=== PATIENT | male | born 1940 | race Two or more races ===

== ENCOUNTER 2016-12-29 08:56 | Emergency (ER) ==
[2016-12-29 09:16] VITALS: BP 151/91; TEMP 97.9; BMI 25.7
[2016-12-29] MEDS ORDERED: ZESTRIL PO STA (09:25)
[2016-12-29 09:36] LABS: BASOPHILS # (AUTO) 0.1 K/uL (0-0.2); BASOPHILS % (AUTO) 0.7 % (0.0-3.0); EOSINOPHILS # (AUTO) 0.3 K/ul (0.0-0.7); EOSINOPHILS % (AUTO) 4.6 % (0.0-7.0); HEMATOCRIT 45.1 % (42.0-52.0); HEMOGLOBIN 16.1 g/dl (14.0-18.0); IMMATURE GRANULOCYTE % (AUTO) 0.6 % (0.0-5.0); LYMPHOCYTES # (AUTO) 1.2 K/uL (0.60-3.4); LYMPHOCYTES % (AUTO) 16.3 (10.0-50.0); MEAN CORPUSCULAR HEMOGLOBIN 32.5 pg (27.0-31.0); MEAN CORPUSCULAR HGB CONC 35.7 (31.8-35.4); MEAN CORPUSCULAR VOLUME 91.1 fl (80.0-94.0); MONOCYTES # (AUTO) 0.6 K/uL (0.4-2.0); MONOCYTES % (AUTO) 8.6 (0-10); NEUTROPHILS % (AUTO) 69.2; PLATELET COUNT 184 10^3/uL (140-440); RED BLOOD COUNT 4.95 10^6/ul (4.70-6.10); WHITE BLOOD COUNT 7.25 K/ul (4.2-10.2)
[2016-12-29 09:57] LABS: SODIUM 139 mmol/L (136-145)
[2016-12-29 09:58] LABS: ALANINE AMINOTRANSFERASE 19 U/L (12-78); ANION GAP 12.1; ASPARTATE AMINO TRANSFERASE 16 U/L (15-37); BLOOD UREA NITROGEN 16 mg/dL (7-18); BUN/CREATININE RATIO 14.54; CALCIUM 8.9 mg/dL (8.2-10.2); CARBON DIOXIDE 24 mmol/L (23-31); CHLORIDE 107 mmol/L (98-107); CREATINE KINASE 38 U/L; GLUCOSE 111 mg/dL (82-115); POTASSIUM 4.1 mmol/L (3.5-5.1); TOTAL PROTEIN 6.3 g/dL (5.8-8.1)
[2016-12-29 09:59] LABS: ALBUMIN 3.8 g/dL (3.4-5.0); ALBUMIN/GLOBULIN RATIO 1.52; ALKALINE PHOSPHATASE 68 U/L (56-119)
--- NOTE | 2016-12-29 11:02 | ED.PDOC ---
General ED Provider: Dr. GAIL WALSH Chief Complaint: Hypertension Stated Complaint: hypertension Time Seen by Physician: 09:00 Mode of Arrival: Walk-In Information Source: Patient Exam Limitations: No limitations Primary Care Provider: SHEY FABIAN Nursing and Triage Documentation Reviewed and Agree: Yes Cardiovascular Complaint Exam - Hypertension Complaint/Exam Symptoms Are: Resolved Timing: Intermittent Reported B/P Prior to Arrival: 200/100 Aggravating: Reports: None Alleviating: Reports: None Associated Signs and Symptoms: Denies: Chest pain, Vision changes, Anxiety, Recent stress, Headache, Numbness, Tingling, Weakness, Dizziness, Short of air, Swelling Related History: Reports: Similar episode Related Surgical History: Reports: None Cardiac Risk Factors: Reports: Hypertension Recent Change in Medications: No A/V Nicking: No Papilledema Present: No JVD Present: No Carotid Bruit Present: No Femoral Pulses Bounding: No Differential Diagnoses: Hypertension Quality Indicator For Non-Traumatic Chest Pain/Syncope: EKG Performed Review of Systems - Review Of Systems Constitutional: Reports: No symptoms Eyes: Reports: No symptoms Ears, Nose, Mouth, Throat: Reports: No symptoms Respiratory: Reports: No symptoms Cardiac: Reports: No symptoms GI: Reports: No symptoms : Reports: No symptoms Musculoskeletal: Reports: No symptoms Skin: Reports: No symptoms Neurological: Reports: No symptoms Endocrine: Reports: No symptoms Hematologic/Lymphatic: Reports: No symptoms All Other Systems: Reviewed and Negative Past Medical History - Past Medical History Previously Healthy: Yes Endocrine: Reports: None Cardiovascular: Reports: Hypertension Respiratory: Reports: None Hematological: Reports: None Gastrointestinal: Reports: None Genitourinary: Reports: None Neuro/Psych: Reports: None Musculoskeletal: Reports: None Cancer: Reports: None - Surgical History General Surgical History: Reports: None - Family History Family History: Reports: None - Social History Smoking Status: Never smoker Hx Substance Use: No Alcohol Screening: Occasionally - Immunizations Tetanus Shot up to Date: No Physical Exam - Physical Exam Appearance: Well-appearing, No pain distress, Well-nourished Eyes: MARK, EOMI, Conjunctiva clear ENT: Ears normal, Nose normal, Oropharynx normal Respiratory: Airway patent, Breath sounds clear, Breath sounds equal, Respirations nonlabored Cardiovascular: RRR, Pulses normal, No rub, No murmur GI/: Soft, Nontender, No masses, Bowel sounds normal, No Organomegaly Musculoskeletal: Normal strength, ROM intact, No edema, No calf tenderness Skin: Warm, Dry, Normal color Neurological: Sensation intact, Motor intact, Reflexes intact, Cranial nerves intact, Alert, Oriented Psychiatric: Affect appropriate, Mood appropriate Critical Care Note - Critical Care Note Total Time (mins): 0 Course - Course Hematology/Chemistry: 12/29/16 09:34 12/29/16 09:34 Orders, Labs, Meds: Lab Review 12/29/16 12/29/16 09:34 09:34 WBC 7.25 RBC 4.95 Hgb 16.1 Hct 45.1 MCV 91.1 MCH 32.5 H MCHC 35.7 H RDW Coeff of Eugenie 12.4 Plt Count 184 Immature Gran % (Auto) 0.6 Neut % (Auto) 69.2 Lymph % (Auto) 16.3 Loving % (Auto) 8.6 Eos % (Auto) 4.6 Baso % (Auto) 0.7 Immature Gran # (Auto) 0.0 Neut # 5.0 Lymph # 1.2 Loving # 0.6 Eos # 0.3 Baso # 0.1 Sodium 139 Potassium 4.1 Chloride 107 Carbon Dioxide 24 Anion Gap 12.1 BUN 16 Creatinine 1.10 Estimated GFR (MDRD) 65.00 BUN/Creatinine Ratio 14.54 Glucose 111 Calcium 8.9 Total Bilirubin 1.20 AST 16 ALT 19 Alkaline Phosphatase 68 Total Creatine Kinase 38 Troponin I < 0.0100 Total Protein 6.3 Albumin 3.8 Globulin 2.5 Albumin/Globulin Ratio 1.52 TSH 1.613 Free T4 1.96 H Orders Category Date Time Status EKG-(ED ONLY) Stat CARDIO 12/29/16 09:25 Ordered CBC W/ AUTO DIFF Stat LAB 12/29/16 09:34 Completed COMPREHENSIVE METABOLIC PANEL Stat LAB 12/29/16 09:34 Completed CREATINE KINASE Stat LAB 12/29/16 09:34 Completed FREE T4 (FREE THYROXINE) Stat LAB 12/29/16 09:34 Completed THYROID STIMULATING HORMONE Stat LAB 12/29/16 09:34 Completed TROPONIN I Stat LAB 12/29/16 09:34 Completed Lisinopril [Zestril] MEDS 12/29/16 09:25 Discontinued 10 mg PO ONCE STA Medications Discontinued Medications Generic Name Dose Route Start Last Admin Trade Name Freq PRN Reason Stop Dose Admin Lisinopril 10 mg 12/29/16 09:25 12/29/16 09:43 Zestril PO 12/29/16 09:26 10 mg ONCE STA Administration Vital Signs: Temp Pulse Resp BP Pulse Ox 12/29/16 08:58 97.9 F 91 H 20 151/91 H 94 L [place] Risk Score [place] Risk Score: Risk Score Odds of by 30D 0 0.1 (0.1-0.2) 1 0.3 (0.2-0.3) 2 0.4 (0.3-0.5) 3 0.7 (0.6-0.9) 4 1.2 (1.0-1.5) 5 2.2 (1.9-2.6) 6 3.0 (2.5-3.6) 7 4.8 (3.8-6.1) Departure - Departure Time of Disposition: 11:02 Disposition: HOME SELF-CARE Discharge Problem: Hypertension Qualifiers: Hypertension type: unspecified Qualified Code(s): I10 - Essential (primary) hypertension Instructions: Hypertension (ED) Condition: Good Pt referred to PMD for follow-up: Yes Additional Instructions: Please call your Family Physician as soon as possible to schedule a follow-up appointment. Allergies/Adverse Reactions: Allergies No Known Allergies Allergy (Unverified 12/29/16 09:07) Home Medications: Ambulatory Orders Losartan Potassium [Cozaar] 37.5 mg PO DAILY 12/29/16
== END 2016-12-29 11:15 | disposition home or self-care (01) ==
LOC: ED 08:56
DX: I10 Essential (primary) hypertension (principal)
CPT/HCPCS: 36415; 80053; 82550; 84439; 84443; 84484; 85025; 93005; 93010; 99284